=== PATIENT | male | born 1985 | race Two or more races ===

== ENCOUNTER 2020-07-07 08:06 | Emergency (ER) | payer MEDICAID ==
[~2020-07-07] VITALS: Ht 188 cm; Wt 114.0 kg
[2020-07-07] MEDS ORDERED: CEFTRIAXONE SODIUM 500 MG/VIAL IM ONE (08:45)
[2020-07-07] MEDS ORDERED: LIDOCAINE HCL 1% 20ML VIAL (Pyxis) INJ INFIL ONE (08:45)
[2020-07-07 08:47] VITALS: BP 149/98
== END 2020-07-07 09:17 | disposition left against medical advice (07) ==
LOC: ER 08:06
DX: N34.2 Other urethritis (principal)
CPT/HCPCS: 99283

== ENCOUNTER 2020-08-07 21:51 | Emergency (ER) | payer MEDICAID ==
[~2020-08-07] VITALS: Ht 188 cm; Wt 108.0 kg
[2020-08-08 00:11] VITALS: BP 127/66
[2020-08-08] MEDS ORDERED: LIDOCAINE HCL 1% 20ML VIAL (Pyxis) INJ INFIL ONE (00:30)
[2020-08-08] MEDS ORDERED: AZITHROMYCIN 500 MG TABLET PO ONE (00:30)
[2020-08-08] MEDS ORDERED: CEFTRIAXONE SODIUM 250 MG/VIAL IM ONE (00:30)
[2020-08-08] MEDS ORDERED: ACETAMINOPHEN 325MG TABLET PO ONE (00:30)
[2020-08-08 02:52] LABS: CLARITY URINE CLEAR (CLEAR); COLOR URINE YELLOW (YELLOW); KETONES URINE TRACE (NEGATIVE); LEUKOCYTE ESTERASE URINE TRACE (NEGATIVE); NITRITE URINE NEGATIVE (NEGATIVE); OCCULT BLOOD URINE NEGATIVE (NEGATIVE); PH URINE 5.5 (4.5-8.0); PROTEIN URINE NEGATIVE (NEGATIVE); SPECIFIC GRAVITY URINE 1.032 (1.005-1.030)
== END 2020-08-08 01:49 | disposition home or self-care (01) ==
LOC: ER 21:51
DX: M79.18 Myalgia, other site (principal); L91.8 Other hypertrophic disorders of the skin; Z20.2 Contact with and (suspected) exposure to infections with a predominantly sexual mode of transmission; R03.0 Elevated blood-pressure reading, without diagnosis of hypertension
CPT/HCPCS: 81003; 96372; 99283; J0696; J3490; 87491; 87591